=== PATIENT | female | born 1985 | race Caucasian/White ===

== ENCOUNTER 2018-03-21 09:29 | Emergency (ER) ==
[2018-03-21 09:35] VITALS: BP 111/76; TEMP 97.6; BMI 31.7
--- NOTE | 2018-03-21 10:21 | DI ---
EXAM: Right hand three-view HISTORY: Injury COMPARISON: None FINDINGS: The bones are normal. The joints are normal. No focal soft tissue abnormality. IMPERSSION: Normal examination.
--- NOTE | 2018-03-21 10:25 | ED.PDOC ---
General ED Provider: Dr. ODALIS GEORGE Chief Complaint: Hand Pain/Injury Stated Complaint: hand pain Time Seen by Physician: 09:30 (brused hand ) Mode of Arrival: Walk-In Information Source: Patient Exam Limitations: No limitations Primary Care Provider: OSIRIS LSAUGHTER Nursing and Triage Documentation Reviewed and Agree: Yes Does patient meet sepsis criteria?: No System Inflammatory Response Syndrome: Not Applicable Sepsis Protocol: For patient's 13 years and over: Temp is 96.8 and below OR 101 and greater Pulse >90 BPM Resp >20/minute Acutely Altered Mental Status Are patient's symptoms suggestive of a new infection, such as: -Pneumonia -Skin, Soft Tissue -Endocarditis -UTI -Bone, Joint Infection -Implantable Device -Acute Abdominal Infection -Wound Infection -Meningitis -Blood Stream Catheter Infection -Unknown Musculoskeletal Complaint Exam - Hand/Wrist Complaint/Exam Location of Pain: Reports: Right, Hand, Wrist Mechanism of Injury: Reports: Trauma (fall) Onset/Duration: 2 days Symptoms Are: Still present Onset of Pain: Reports: Immediate Initial Severity: Mild Current Severity: Mild Location: Reports: Discrete Character: Reports: Aching Alleviating: Reports: Rest Aggravating: Reports: Movement Associated Signs and Symptoms: Reports: Bruising. Denies: Swelling, Redness, Fever, Weakness, Numbness, Tingling Dominant Hand: Right Hand/Wrist Findings: Present: Ecchymosis Differential Diagnoses: Closed Fracture, Sprain Review of Systems - Review Of Systems Constitutional: Reports: No symptoms Eyes: Reports: No symptoms Ears, Nose, Mouth, Throat: Reports: No symptoms Respiratory: Reports: No symptoms Cardiac: Reports: No symptoms GI: Reports: No symptoms : Reports: No symptoms Musculoskeletal: Reports: Joint pain (wrist right and hand ) Skin: Reports: Other (hand is brused ) Neurological: Reports: No symptoms Endocrine: Reports: No symptoms Hematologic/Lymphatic: Reports: No symptoms All Other Systems: Reviewed and Negative Past Medical History - Past Medical History Previously Healthy: Yes Endocrine: Reports: None Cardiovascular: Reports: None Respiratory: Reports: None Hematological: Reports: None Gastrointestinal: Reports: None Genitourinary: Reports: None Neuro/Psych: Reports: None Musculoskeletal: Reports: None Cancer: Reports: None Last Menstrual Period: last week - Surgical History General Surgical History: Reports: None - Family History Family History: Reports: None - Social History Smoking Status: Never smoker Hx Substance Use: No Alcohol Screening: None Physical Exam - Physical Exam Appearance: Well-appearing, No pain distress, Well-nourished Eyes: KANDY, EOMI, Conjunctiva clear ENT: Ears normal, Nose normal, Oropharynx normal Respiratory: Airway patent, Breath sounds clear, Breath sounds equal, Respirations nonlabored Cardiovascular: RRR, Pulses normal, No rub, No murmur GI/: Soft, Nontender, No masses, Bowel sounds normal, No Organomegaly Musculoskeletal: Normal strength, ROM intact, No edema (but brused ) Skin: Warm, Dry, Normal color Neurological: Sensation intact, Motor intact, Reflexes intact, Cranial nerves intact, Alert, Oriented Psychiatric: Affect appropriate, Mood appropriate Critical Care Note - Critical Care Note Total Time (mins): 0 Course - Course Orders, Labs, Meds: Orders Category Date Time Status HAND, RIGHT 3 VIEWS Stat RADS 03/21/18 09:50 Completed WRIST, RIGHT 3 VIEWS Stat RADS 03/21/18 09:50 Taken Vital Signs: Temp Pulse Resp BP Pulse Ox 03/21/18 09:29 97.6 F 72 18 111/76 97 Departure - Departure Time of Disposition: 10:25 Disposition: HOME SELF-CARE Discharge Problem: Injury of hand, Hand pain Instructions: Arthralgia (ED) Condition: Good Pt referred to PMD for follow-up: Yes IPMP verified?: No Additional Instructions: Please call your Family Physician as soon as possible to schedule a follow-up appointment. Allergies/Adverse Reactions: Allergies clavulanic acid [From Timentin] Adverse Reaction (Verified 03/21/18 09:50) shrimp Adverse Reaction (Verified 03/21/18 09:50) ticarcillin [From Timentin] Adverse Reaction (Verified 03/21/18 09:50) dairy Adverse Reaction (Uncoded 03/21/18 09:35) Home Medications: Ambulatory Orders Acetaminophen [Tylenol] 500 mg PO PRN PRN 03/21/18 Buspirone HCl 15 mg PO BID 03/21/18 Desogestrel-Ethinyl Estradiol [Juleber 28 Day Tablet] 1 each PO DAILY 03/21/18 Dicyclomine HCl 20 mg PO BID 03/21/18 Famotidine [Pepcid] 40 mg PO DAILY 03/21/18 Fenofibrate [Triglide] 160 mg PO DAILY 03/21/18 Lorazepam 0.25 mg PO TID 03/21/18 Montelukast Sodium [Singulair] 10 mg PO DAILY 03/21/18
--- NOTE | 2018-03-21 10:26 | DI ---
Exam: Three views right wrist. Comparison: None available. Reason for exam: Injury. FINDINGS: No acute fracture or malalignment. The joint spaces appear well maintained. The imaged o sseous structures appear grossly unremarkable without acute fracture. Impression: No acute fracture or malalignment in the right wrist.
== END 2018-03-21 11:00 | disposition home or self-care (01) ==
LOC: ED 09:29
DX: S60.221A Contusion of right hand, initial encounter (principal); M25.531 Pain in right wrist; W19.XXXA Unspecified fall, initial encounter
CPT/HCPCS: 99283